=== PATIENT | male | born 1960 ===

== ENCOUNTER 2016-12-29 09:58 | Emergency (ER) | payer OTHER ==
[2016-12-29 10:02] VITALS: BP 123/74; PULSE 84; RESP 20; TEMP 98.1; O2SAT 98
[2016-12-29 10:03] VITALS: BMI 38.7
[2016-12-29 11:50] LABS: BASO # 0.1 K/uL (0.0-0.2); EOS # 0.1 K/uL (0.0-0.7); EOS % 1.4 % (0.0-4.0); HEMATOCRIT 36.7 % (35.0-51.0); LYMPH # 1.7 K/uL (1.0-4.3); LYMPH % 26.7 % (20.0-40.0); MEAN CORPUSCULAR HEMOGLOBIN 21.4 pg (27.0-31.0); MONO # 0.5 K/uL (0.0-0.8); MONO % 7.4 % (0.0-10.0); NEUT % 63.5 % (50.0-75.0); RED CELL DISTRIBUTION WIDTH 20.8 % (11.5-14.5); WHITE BLOOD COUNT 6.3 K/uL (4.8-10.8)
[2016-12-29 11:57] LABS: RBC URINE 2 /hpf (0-3); URINE BILIRUBIN NEGATIVE (NEGATIVE); URINE BLOOD NEGATIVE (NEGATIVE); URINE COLOR YELLOW (YELLOW); URINE GLUCOSE (UA) NEG (Normal); URINE KETONE NEGATIVE (NEGATIVE); URINE LEUKOCYTE ESTERASE NEG Leu/uL (Negative); URINE PROTEIN 30 mg/dL (NEGATIVE); URINE UROBILINOGEN 0.2-1.0 mg/dL (0.2-1.0); WBC URINE 3 /hpf (0-5)
[2016-12-29 11:59] LABS: ALB/GLOB RATIO 1.2 (1.0-2.1); ALKALINE PHOSPHATASE 73 U/L (38-126); ALT/SGPT 41 U/L (21-72); AST/SGOT 37 U/L (17-59); BILIRUBIN,TOTAL 1.2 mg/dl (0.2-1.3); BLOOD UREA NITROGEN 13 mg/dl (9-20); CALCIUM 9.8 mg/dL (8.4-10.2); CARBON DIOXIDE 24 mmol/L (22-30); CHLORIDE 105 mmol/L (98-107); GFR AFRICAN-AMERICAN > 60; GLUCOSE,RANDOM 104 mg/dL (75-110); POTASSIUM 3.9 MMOL/L (3.6-5.0); SODIUM 144 mmol/l (132-148); TOTAL PROTEIN 8.1 G/DL (6.3-8.2)
--- NOTE | 2016-12-29 12:31 | ED PDOC ---
HPI: Male Pain Time Seen by Provider: 12/29/16 11:28 Chief Complaint (Nursing): Male Genitourinary Chief Complaint (Provider): tesicular pain History Per: Patient Additional Complaint(s): 66yo M in ED for eval of testicular pain x 5 months worsened in past 1 month with burning on urination in past week without fever chills nausea vomiting hematuira interruption in urine stream. pt states left testicular area has a painful mass . denies suprapubic pain, back pain, penile drainage. pt denies seeing a doctor for discomfort. Past Medical History Reviewed: Historical Data, Nursing Documentation, Vital Signs Vital Signs: Last Vital Signs Temp 98.1 F 12/29/16 10:02 Pulse 84 12/29/16 10:02 Resp 20 12/29/16 10:02 BP 123/74 12/29/16 10:02 Pulse Ox 98 12/29/16 10:02 - Medical History PMH: No Chronic Diseases - Family History Family History: States: No Known Family Hx - Allergies Allergies/Adverse Reactions: Allergies Allergy/AdvReac Type Severity Reaction Status Date / Time No Known Allergies Allergy Verified 12/29/16 11:25 Review of Systems ROS Statement: Except As Marked, All Systems Reviewed And Found Negative Constitutional: Negative for: Fever, Chills Gastrointestinal: Negative for: Nausea, Vomiting, Abdominal Pain Genitourinary Male: Positive for: Dysuria, Scrotal Pain. Negative for: Frequency, Incontinence, Hematuria, Penile Discharge, Rash Physical Exam - Reviewed Nursing Documentation Reviewed: Yes Vital Signs Reviewed: Yes - Physical Exam Appears: Positive for: Well, Non-toxic, No Acute Distress Skin: Positive for: Normal Color, Warm, DRY Cardiovascular/Chest: Positive for: Regular Rate, Rhythm Respiratory: Positive for: CNT, Normal Breath Sounds Gastrointestinal/Abdominal: Positive for: Normal Exam, Bowel Sounds, Soft. Negative for: Tenderness Male Genital Exam: Positive for: no hernia, epididymal tenderness (left), testicular tenderness (L). Negative for: bleeding, erythema, hernia mass, inguinal tenderness, lesions, scrotum tenderness (R), scrotum tenderness (L), testicular tenderness (R), urethral discharge Back: Positive for: Normal Inspection. Negative for: L CVA Tenderness, R CVA Tenderness Extremity: Positive for: Normal ROM Neurologic/Psych: Positive for: Alert, Oriented - Laboratory Results Result Diagrams: 12/29/16 11:43 12/29/16 11:43 - ECG O2 Sat by Pulse Oximetry: 98 - CT Scan/US US Other Rad Studies (CT/US): Radiology Report Reviewed (cyst) - Progress ED Course And Treament: pt will be tested for STI and will get US and UA. r/o testicular mass. Re-evaluation Time: 12:50 Condition: Re-examined (stable-doens't req. pain control) Medical Decision Making Medical Decision Making: dx: testicular cyst advised to take motrin for pain and f.u with urologist. well appearing in ED unremarkable UA STI testing will report if positive in 5 days pt made aware. Disposition - Clinical Impression Clinical Impression: Testicular cyst - Patient ED Disposition Is Patient to be Admitted: No Counseled Patient/Family Regarding: Studies Performed, Diagnosis, Need For Followup - Disposition Referrals: [facility] [Outside] [facility] [Outside] [facility] [Provider Group] [facility] [Provider Group] [facility] [Provider Group] [facility] [Provider Group] Disposition: Routine/Home Disposition Time: 13:33 Condition: STABLE Instructions: Testicle Pain (ED), Testicular Self-examination (ED) Print Language: GAMBIAN
--- NOTE | 2016-12-29 12:40 | US ---
HISTORY: left testicular pain TECHNIQUE: Realtime sonography through the scrotum with color and doppler flow. COMPARISON: None Available. FINDINGS: RIGHT TESTICLE: Measures 4.5 x 1.7 x 3.3 cm. Normal echotexture and flow. RIGHT EPIDIDYMIS: Epididymal head measures 9 x 7 x 8 mm. There is a 4 mm simple cyst in the head of the epididymis. Normal flow in. LEFT TESTICLE: Measures 4.4 x 1.6 x 2.8 cm. Normal echotexture and flow. LEFT EPIDIDYMIS: Epididymal head enlarged and measures 2.1 x 1.4 x 1.9 cm. There is a 1.5 x 1.0 x 1.1 cm septated cyst in the head of the epididymis. Normal flow. HYDROCELE: There are bilateral small hydroceles. VARICOCELE: None. OTHER FINDINGS: None. IMPRESSION: No evidence for testicular mass or torsion. 1.5 cm septated cyst in the head of the left epididymis.
== END 2016-12-29 14:04 | disposition home or self-care (01) ==
LOC: EDBD 09:58 → H.ER 09:58
DX: N44.2 Benign cyst of testis (principal)